=== PATIENT | female | born 1975 | race Caucasian/White ===

== ENCOUNTER 2016-11-16 13:52 | Emergency (ER) | payer MEDICAID ==
[~2016-11-16] VITALS: Ht 162.6 cm; Wt 84.5 kg
[~2016-11-16 13:52] MED LIST: FOLIPOW27 PO; PREN0.01 PO
[2016-11-16 14:00] VITALS: BP 132/65; PULSE 64; RESP 16; TEMP 97.9; O2SAT 100
[2016-11-16] MEDS ORDERED: MULTTAB67 PO (14:14)
[2016-11-16] MEDS ORDERED: DALBAVANCIN INJ 1,500 MG in DEXTROSE 5% IN WATE 500 ML INJ 500 ML IV STA ×2 (14:35)
[2016-11-16] MEDS ORDERED: ASP: Location of Dalbavancin administration OTHER ONE (14:45)
[2016-11-16] MEDS ORDERED: MISCELLANEOUS PHARMACY INFORMATION XX ONE (14:45)
[2016-11-16] MEDS ORDERED: ASP: Does not meet inpatient admission criteria OTHER ONE (14:45)
[2016-11-16] MEDS ORDERED: ASP: Only reason for admit - IV antibiotics OTHER ONE (14:45)
[2016-11-16] MEDS ORDERED: ASP: No known hypersensitivity to Vanco, Telavancin, Dalbavancin OTHER ONE (14:45)
[2016-11-16 15:09] LABS: AUTOMATED NEUTROPHIL # 3.9 TH/MM3 (1.8-7.7); BASOPHIL # 0.1 TH/MM3 (0-0.2); EOSINOPHIL # 0.7 TH/MM3 (0-0.4); EOSINOPHIL % 10.5 % (0.0-4.0); HEMATOCRIT 36.8 % (35.0-46.0); HEMO FLAGS DIFF FINAL; LYMPH % 24.8 % (9.0-44.0); LYMPHOCYTE # 1.8 TH/MM3 (1.0-4.8); MEAN CELL VOLUME 88.9 FL (80.0-100.0); MEAN CORPUSCULAR HEMOGLOBIN 30.3 PG (27.0-34.0); MONO % 8.5 % (0.0-8.0); NEUT % 54.2 % (16.0-70.0); PLATELET COUNT 271 TH/MM3 (150-450); RED BLOOD COUNT 4.14 MIL/MM3 (4.00-5.30); RED CELL DISTRIBUTION WIDTH 11.9 % (11.6-17.2); WHITE BLOOD COUNT 7.1 TH/MM3 (4.0-11.0)
[2016-11-16 15:17] LABS: CHLORIDE 108 MEQ/L (98-107); SODIUM (NA) 139 MEQ/L (136-145)
[2016-11-16 15:20] LABS: ANION GAP 5 MEQ/L (5-15); BICARBONATE 26.4 MEQ/L (21.0-32.0)
--- NOTE | 2016-11-16 15:20 | PD ---
HPI . Wound to left lower leg Chief Complaint: Skin Problem Time Seen by Provider: 14:17 Travel History International Travel<30 days: No Contact w/Intl Traveler<30days: No Traveled to known affect area: No History of Present Illness HPI 41-year-old female presents emergency department for evaluation of ulcerated wound to the medial aspect of left lower leg proximal to the medial malleolus. Patient states she was seen a month ago at another facility and discharged with Keflex and Bactrim. Patient denies any major medical history. Patient does not take any daily medication. Patient denies chest pain, fevers, chills, malaise, dysuria, hematuria. Patient states the wound is painful locally. The pain does not shoot radiate anywhere. There is mild erythema surrounding the wound, no edema noted. PFSH Past Medical History Diabetes: No Diminished Hearing: No Gestational Age in Weeks: 19 Influenza Vaccination: No ?: Not : 10 Para: 8 Miscarriage: 2 : 0 Dilation and Curettage (D&C): Yes Past Surgical History Tonsillectomy: Yes Social History Alcohol Use: No Tobacco Use: No Substance Use: No Allergies-Medications (Allergen,Severity, Reaction): Coded Allergies: No Known Allergies (Verified , 11/16/16) Reported Meds & Prescriptions Reported Meds & Active Scripts Active Reported Multiple Vitamin 1 Tab 1 Tab PO DAILY Review of Systems Except as stated in HPI: all other systems reviewed are Neg Physical Exam Narrative GENERAL: Well-nourished, well-developed 41-year-old female patient in no acute distress. SKIN: 1.5 cm 1 cm area of ulceration with surrounding mild erythema noted to the medial aspect of the left lower leg proximal to the medial malleolus. HEAD: Normocephalic. Atraumatic EYES: No scleral icterus. No injection or drainage. NECK: Supple, trachea midline. No JVD or lymphadenopathy. CARDIOVASCULAR: Regular rate and rhythm without murmurs, gallops, or rubs. RESPIRATORY: Breath sounds equal bilaterally. No accessory muscle use. GASTROINTESTINAL: Abdomen soft, non-tender, nondistended. MUSCULOSKELETAL: No cyanosis, or edema. BACK: Nontender without obvious deformity. No CVA tenderness. Data Data Last Documented VS Vital Signs Date Time Temp Pulse Resp B/P (MAP) Pulse Ox O2 Delivery O2 Flow Rate FiO2 11/16/16 14:00 97.9 64 16 132/65 (87) 100 Orders Orders Complete Blood Count With Diff (11/16/16 14:35) Comprehensive Metabolic Panel (11/16/16 14:35) Case Management Consult (11/16/16 ) Asp:No Reaction To [place]/Vanc (Asp Crit (11/16/16 14:45) Asp: Does Not Meet Inpt Admit (Asp Crit: (11/16/16 14:45) Asp: Iv Antibiotics Admit Only (Asp Crit (11/16/16 14:45) Asp: Location Of [facility] Admin (Asp Crit: (11/16/16 14:45) [facility] [facility] Information ([facility] (11/16/16 14:45) [facility]ancin Inj (Dalvance Inj) (11/16/16 14:35) Elevate (11/16/16 14:35) Document (11/16/16 14:35) Measurements (11/16/16 14:35) Iv Access Insert/Monitor (11/16/16 14:40) Labs Laboratory Tests Test 11/16/16 14:50 White Blood Count 7.1 TH/MM3 Red Blood Count 4.14 MIL/MM3 Hemoglobin 12.5 GM/DL Hematocrit 36.8 % Mean Corpuscular Volume 88.9 FL Mean Corpuscular Hemoglobin 30.3 PG Mean Corpuscular Hemoglobin Concent 34.0 % Red Cell Distribution Width 11.9 % Platelet Count 271 TH/MM3 Mean Platelet Volume 8.4 FL Neutrophils (%) (Auto) 54.2 % Lymphocytes (%) (Auto) 24.8 % Monocytes (%) (Auto) 8.5 % Eosinophils (%) (Auto) 10.5 % Basophils (%) (Auto) 2.0 % Neutrophils # (Auto) 3.9 TH/MM3 Lymphocytes # (Auto) 1.8 TH/MM3 Monocytes # (Auto) 0.6 TH/MM3 Eosinophils # (Auto) 0.7 TH/MM3 Basophils # (Auto) 0.1 TH/MM3 CBC Comment DIFF FINAL Differential Comment Blood Urea Nitrogen 14 MG/DL Random Glucose 93 MG/DL Albumin 3.6 GM/DL Calcium Level 8.5 MG/DL Sodium Level 139 MEQ/L Potassium Level 4.0 MEQ/L Chloride Level 108 MEQ/L Carbon Dioxide Level 26.4 MEQ/L Anion Gap 5 MEQ/L MDM Medical Decision Making Medical Screen Exam Complete: Yes Emergency Medical Condition: Yes Differential Diagnosis Differential diagnoses include cellulitis, wound ulceration, failed outpatient therapy Narrative Course 41-year-old female presents to emergency department for evaluation of left lower leg wound. Patient was placed on Bactrim and Keflex a month ago. Patient returned to the emergency department at the other facility 2 weeks ago and was placed on Keflex alone. Patient was analyzed for Dalvance therapy however she did not meet criteria. Labs show no leukocytosis. Vital signs within normal limits. Patient afebrile and not tachycardiac. Based on patient' s symptoms, clinical presentation, lab results, vital sign review and physical exam it is not necessary to admit the patient to the hospital or keep the patient in the emergency department for further evaluation. Patient will be given a prescription for Bactrim and discharged home with instructions to follow -up with her primary care return to the emergency Department with any signs and symptoms of infection or worsening infection. Diagnosis Primary Impression: Leg wound, left Qualified Codes: S81.802A - Unspecified open wound, left lower leg, initial encounter Patient Instructions: Acute Wounds (ED), General Instructions Additional Instructions: Please return to emergency department with any signs or symptoms of infection or worsening infection. These include redness, swelling, warmth, increasing pain and fevers. Keep wound clean and dry. Follow up with your primary care provider. Take medications as prescribed. Med/Other Pt SpecificInfo: Prescription(s) given Scripts Sulfamethoxazole-Trimethoprim (Bactrim DS) 800-160 Mg Tab 1 TAB PO BID for Infection for 10 Days, #20 TAB 0 Refills Prov: Genoveva Bryan 11/16/16 Disposition: 01 DISCHARGE HOME Condition: Stable Genoveva Bryan Nov 16, 2016 15:20
[2016-11-16 15:21] LABS: BLOOD UREA NITROGEN 14 MG/DL (7-18)
[2016-11-16 15:23] LABS: ALT (GPT) 17 U/L (10-53); AST (GOT) 11 U/L (15-37)
[2016-11-16 15:24] LABS: GLOMERULAR FILTRATION RATE 61 ML/MIN (>89)
[2016-11-16 15:25] LABS: TOTAL BILIRUBIN ADULT 0.5 MG/DL (0.2-1.0)
[2016-11-16 15:26] LABS: ALKALINE PHOSPHATASE 38 U/L (45-117)
[2016-11-16] MEDS ORDERED: BACT800T5 PO (15:33)
== END 2016-11-16 16:08 | disposition home or self-care (01) ==
LOC: PHEFT 13:52
DX: S81.802A Unspecified open wound, left lower leg, initial encounter (principal); X58.XXXA Exposure to other specified factors, initial encounter; M79.662 Pain in left lower leg
CPT/HCPCS: 80053; 85025; 86403; 87070; 87077; 87186; 87205; 99283